=== PATIENT | male | born 1930 | race Caucasian/White ===

== ENCOUNTER → 2017-03-03 | Outpatient (CLI) | payer MEDICARE, OTHER ==
[~2017-03-03] MED LIST: AMOXICILLIN250 MG PO; ARTIFICIAL TEAR15 ML OPHTH; ASPIRIN (CHILDR81 MG PO; B COMPLETE1 EACH PO; CALCIUM 600 +1 EAC6 PO; CARDIZEM CD)(T180 MG PO; CITRACAL+D(315M1 TAB PO; CRESTOR10 MG PO; FLOMAX0.4 MG PO; FLORASTOR250 MG PO; K-TAB ER20 MEQ PO; MECLIZINE HCL25 M1 PO; MICROZIDE12.5 MG PO; PROTONIX40 M1 PO; REFRESH TEARS15 ML OPHTH; SALONPAS PATCH1 EAC1 TOP; STOOL SOFTENER100 MG PO; TUMS REGULAR ST1 TAB PO; TYLENOL EXTRA500 MG PO; VITAMIN D1000 UNI1 PO
== END | disposition disaster alternative care site (69) ==
LOC: GCAR 12:14
DX: R42 Dizziness and giddiness (principal); I65.23 Occlusion and stenosis of bilateral carotid arteries; R26.81 Unsteadiness on feet; R26.2 Difficulty in walking, not elsewhere classified

== ENCOUNTER 2017-03-22 23:23 | Emergency (ER) | payer MEDICARE, OTHER ==
--- NOTE | ~2017-03-22 | ER ---
PATIENT'S NAME: LIDIA MAYNARD [facility] AGE: 87 Y [address] ROOM: [place] [address] LOCATION: [facility] ADMIT DATE: 03/22/2017 ER/Outpatient Report DISCHARGE DATE: 03/23/2017 FAMILY PHYSICIAN: Eric Enriquez MD ATTENDING PHYSICIAN: Harika Morales HISTORY OF PRESENT ILLNESS: This is an 87-year-old male who presents today with chief complaint of bilateral leg weakness. He says that he had been feeling unwell for the last four days. He had gone in to see Dr. Enriquez for this right-sided facial pain in his jaw with diagnosis of TMJ and placed on prednisone. Had seen Dr. Enriquez earlier today as well for recheck and evaluation. The patient says he felt fine earlier this morning and then at nighttime before he went to bed that was about 3 hours prior to coming in. He felt sort of weak, but he went to bed and then woke up at about 2 hours prior to coming into the ER. I tried to get to the bathroom and had bilateral leg weakness. The patient says that he had some difficulty walking. His also thinks his voice is a little bit slurred as well. The patient denies any headache. No incontinence. No nausea or vomiting. No seizure-like activity. No chest pain. No difficulty swallowing. He says that he has some numbness on the right side of his face. He has had something like this in the past and he says it is because he was placed on codeine and once they stopped that, he did have anymore, so that is why he thinks he is allergic to codeine, although he is not completely sure. PAST MEDICAL HISTORY: Includes CAD, PCI with stents in 2007 and CABG as well in 1998, BPH, osteoarthritis, hyperlipidemia, GERD, hypertension, West Nile disease in 2005. 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 SOCIAL HISTORY: He is not a smoker or use any drugs. He uses alcohol rarely. He is and lives in [place]. MEDICATIONS: Please see med list. ALLERGIES: POSSIBLY TO CODEINE, NOTHING ELSE. REVIEW OF SYSTEMS: Reviewed by me and with the exception of those discussed in the HPI. PATIENT'S NAME: LIDIA MAYNARD [facility] AGE: 87 Y [address] ROOM: [place] [address] LOCATION: [facility] ADMIT DATE: 03/22/2017 ER/Outpatient Report DISCHARGE DATE: 03/23/2017 FAMILY PHYSICIAN: Eric Enriquez MD ATTENDING PHYSICIAN: Harika Morales PHYSICAL EXAMINATION: VITAL SIGNS: The patient's blood pressure 116/77, heart rate 97, respiratory rate 16, temperature is 98.6, oral saturating 93% on room air. GENERAL: The patient does not look toxic. He is well appearing. HEENT: Pupils are equal and reactive to light. He does have a right-sided facial paralysis that is the entire right side of his face. States he has a bit of ptosis on that right side and that right eye does not move as much of that left eye when he talks, so this is chronic and is not anything new according to him and his . He is otherwise alert and oriented x4. He is not lethargic. He knows he is oriented to person, place, time, and situation. His pupils are equal and reactive to light. He his speech is pretty normal. He answers questions appropriately. I do not think his speech is very slurred at all. HEART: Rate is regular rate and rhythm. He has strong pulses. LUNGS: His lung sounds are clear. He has no labored breathing, tachypnea, accessory muscle use. ABDOMEN: Soft, nontender, nondistended. He has no guarding or rebound. SKIN: Warm, dry, and intact. NEURO: He has no pronator drift. Strength of bilateral upper extremities are 5/5. Intact sensation in bilateral upper extremities. Strength of bilateral lower extremities are also 5/5. He also has intact sensation bilateral lower extremities. His plantar flexion and dorsiflexion of the ankles are both 5/5. He has good grasp strength bilaterally. His cranial nerves 2 through 12 are intact. He is able to do [id number] testing. So, his Euro-stroke scale at this time, I gave him 1 for this mild dysarthria with the slurring of some words, but otherwise his stroke scale is 1 and I do not think he meets criteria for tPA at this time with a stroke scale of 1 and improving symptoms. He does not have any motor weakness at this time. DIAGNOSTIC DATA: We checked some lab work and we did a CT head, so looking for other causes of this bilateral leg weakness which is his major complaint. The CT head shows diffuse atrophy, but there was no acute hemorrhage and no definite acute infarct. The UA showed leukocytes 25, nitrites negative, wbc's 0-2, rbc's negative. Epithelial cells 0-2, bacteria negative, so essentially a negative UA as well. CBC shows white count of 10.4, H and H is 14.0/41.0, platelets are 132. The manual diff shows an ANC of 9.5 on his left shift as well, but no bandemia. His procalcitonin is 0.57. His CMS shows a sodium of 138, potassium 3.4, chloride 105, CO2 of 24, anion gap 12.4, BUN is 28, creatinine is 1.2, bilirubin 0.9, alkaline phosphatase 80, AST 21, ALT 24, GFR 57, CPK 92, CK-MB is 1.4. Troponin I is 0.085. EKG shows sinus rhythm. He has some PVCs and some ST depression and biphasic T-waves in V6, but no other acute abnormalities. The patient never had chest pain. I went back to re-evaluate him. He had been given a liter of fluids. At this PATIENT'S NAME: LIDIA MAYNARD [facility] AGE: 87 Y [address] ROOM: [place] [address] LOCATION: [facility] ADMIT DATE: 03/22/2017 ER/Outpatient Report DISCHARGE DATE: 03/23/2017 FAMILY PHYSICIAN: Eric Enriquez MD ATTENDING PHYSICIAN: Harika Morales A point, we also gave him a full dose of aspirin here as well and some Zofran, and he says he feels better. We were able to get him to stand up on a bed. He is able to bear weight. He says he feels a lot better than he did when he came in. I looked at his chest x-ray as well, I do not see he had pneumonia, cannot find a source for possible infection, and he feels warm but he is afebrile. He has low mildly elevated procalcitonin. No chest pain. No EKG findings, although mildly elevated troponin I as well. I discussed this patient with Dr. Enriquez. Given that this patient looks pretty well and his symptoms have completely resolved now. We will give him a shot of Rocephin and have him follow up with Dr. Enriquez. I do not think this is indicative of acute stroke, and the patient has had new carotid Dopplers, and in that workup previously, he does take an aspirin every day as well. We will have him follow up with Dr. Enriquez in 12 hours. He understands reasons to come back to the ER sooner. IMPRESSION: Generalized weakness. MD YODIT GREENWOOD/lorenzo /[id number] d: 03/23/17 1225 t: 04/21/17 1101, OUTPATIENT REPORT
[2017-03-23 00:18] LABS: MCH 30.2 pg (27.0-34.0); MCHC 34.1 gm/dL (32.0-36.5); MCV 88.4 fl (83.0-98.0); MPV 10.4 fl (9.4-12.4); PLATELET COUNT 132 K/uL (150-450); RBC 4.64 M/uL (3.50-5.50); RDW-CV 13.6 % (11.9-14.6); WBC 10.4 K/uL (4.0-11.0)
[2017-03-23 00:35] LABS: ALBUMIN 3.3 gm/dL (3.5-5.0); ANION GAP 12.4 (10.0-19.0); CALCIUM 8.4 mg/dL (8.5-10.5); CREATININE 1.2 mg/dL (0.6-1.3); POTASSIUM 3.4 mMol/L (3.7-5.1); TOTAL BILIRUBIN 0.9 mg/dL (0.0-1.5); TOTAL PROTEIN 6.7 g/dL (6.0-8.4)
[2017-03-23 00:55] LABS: ABSOLUTE NEUTROPHIL CT (ANC) 9.5 K/uL (1.4-9.0); LYMPHOCYTE # 0.4 K/uL (0.8-4.0); LYMPHOCYTE % 4 %; MONOCYTE # 0.5 K/uL (0.0-1.0); SEGMENTED NEUTROPHIL # 9.5 K/uL (1.4-9.0); SEGMENTED NEUTROPHIL % 91 %
[2017-03-23 01:44] LABS: BILIRUBIN URINE NEGATIVE (NEGATIVE); BLOOD URINE NEGATIVE /UL (NEGATIVE); COLOR URINE YELLOW (YELLOW); GLUCOSE URINE NEGATIVE (NEGATIVE); KETONE URINE NEGATIVE (NEGATIVE); LEUKOCYTES URINE 25 /UL (NEGATIVE); NITRITE URINE NEGATIVE (NEGATIVE); PROTEIN URINE 15 mg/dL (NEGATIVE); SPEC GRAVITY URINE 1.015 (1.003-1.035); TURBIDITY URINE 1+ (CLEAR); UROBILINOGEN URINE 1 mg/dL (NORMAL)
[2017-03-23 01:52] LABS: BACTERIA URINE NEGATIVE (NEGATIVE); EPITHELIAL URINE 0-2 #/HPF (NEGATIVE); MUCUS URINE 1+ (NEGATIVE); RBC URINE NEGATIVE #/HPF (NEGATIVE); WBC URINE 0-2 #/HPF (NEGATIVE)
== END 2017-03-23 02:45 | disposition disaster alternative care site (69) ==
LOC: GACC 23:23
PROVIDERS: Emergency Medicine
DX: R53.1 Weakness (principal); I25.10 Atherosclerotic heart disease of native coronary artery without angina pectoris; M19.90 Unspecified osteoarthritis, unspecified site; E78.5 Hyperlipidemia, unspecified; K21.9 Gastro-esophageal reflux disease without esophagitis; I10 Essential (primary) hypertension; Z95.5 Presence of coronary angioplasty implant and graft; Z95.1 Presence of aortocoronary bypass graft; Z90.79 Acquired absence of other genital organ(s); Z79.899 Other long term (current) drug therapy
CPT/HCPCS: J0696; J2405; J7030

== ENCOUNTER → 2017-03-22 | Outpatient (CLI) | payer MEDICARE, OTHER | END | disposition disaster alternative care site (69) | LOC: GAMB 22:52 | DX: I63.9 Cerebral infarction, unspecified (principal); K21.9 Gastro-esophageal reflux disease without esophagitis; I10 Essential (primary) hypertension; R68.84 Jaw pain; R53.1 Weakness; R47.81 Slurred speech; Z79.82 Long term (current) use of aspirin; Z79.899 Other long term (current) drug therapy; Z88.2 Allergy status to sulfonamides | CPT/HCPCS: A0425; A0427 ==

== ENCOUNTER → 2017-04-08 | Outpatient (CLI) | payer MEDICARE, OTHER ==
[2017-04-08 10:18] LABS: ESTIMATED GFR (MDRD EQUATION) > 60
== END | disposition disaster alternative care site (69) ==
LOC: GRAD 09:31 → GLAB 10:00 → GRAD 11:00
PROVIDERS: Otolaryngology
DX: R20.0 Anesthesia of skin (principal); I65.23 Occlusion and stenosis of bilateral carotid arteries
CPT/HCPCS: Q9967

== ENCOUNTER 2017-05-16 18:13 | Inpatient (IN) | payer MEDICARE, OTHER ==
[~2017-05-16] VITALS: Ht 175.3 cm; Wt 78.9 kg
--- NOTE | ~2017-05-16 | ECHO ---
Transthoracic Echocardiography Report (TTE) Demographics Patient Name LIDIA MAYNARD Date of Study 05/19/2017 P Patient Number [id number] Visit Number [id number] Date of 1930 Room Number G3206 Accession Number [id number] Gender Male Age 87 year(s) Referring Pelon Calhoun MD Factory Expert Imani Garzon RVT Physician Cuong Arenas Physician Interpreting Ronan Houser Orchestra Conductor Physician Supervising Ordering Physician Cuong Arenas MD/MLP Nurse Stress Client Development Consultant Conclusions Contractility Score Summary Normal Left Ventricular contractility was noted. Summary Normal LV/RV size and systolic function. The estimated left ventricular ejection fraction is 55-60%. Left ventricle appears hyperdynamic. Diastolic assessment reveals Grade I diastolic dysfunction. Mild biatrial enlargement. The aortic valve was not well imaged. There is mild aortic stenosis by the Continuity Equation. The peak velocity is 3.08 m/s, the mean gradient is 17 mmHg, and the valve area based on the continuity equation is 1.82 cm2, stroke volume index is 37 ml/m2. Procedure Type of Study TTE procedure:2D Echocardiogram. Procedure Date Date: 05/19/2017 Start: 01:28 PM Study Location: Echo Lab Technical Quality: Limited visualization due to poor acoustical window. Indications:Elevated Troponin. Appropriate Use Criteria: 9 Patient Status: Routine HR: 75 bpm M-Mode/2D Measurements LV Diastolic Dimension: 3.26 cm LV Systolic Dimension: 2.38 cm Cardiac Output: 5.32 l/min AO Root Dimension: 2.4 cm LA Dimension: 3.63 cm LA volume: 63 ml RV Mid: 2.75 cm LVOT: 2 cm RV Length: 5.36 cm LVOT VTI: 22.6 cm TAPSE: 1.46 cm LV Stroke volume: 70.96 ml Doppler Measurements AV Peak Velocity: 3.08 m/s MV Peak E-Wave: 0.76 m/s AV Peak Gradient: 37.95 mmHg MV Peak A-Wave: 1.2 m/s AV Mean Gradient: 17 mmHg MV E/A Ratio: 0.64 LVOT Peak Velocity: 1.52 m/s MV P1/2t: 98 msec TR Gradient:8.29 mmHg PV Peak Velocity: 1.28 m/s Estimated RAP:10 mmHg PV Peak Gradient: 6.55 mmHg Estimated RVSP: 18 mmHg Estimated PASP: 18.29 mmHg E' Septal Velocity: 0.04 m/s A' Septal Velocity: 0.08 m/s E' Lateral Velocity: 0.1 m/s A' Lateral Velocity: 0.12 m/s Findings Left Ventricle Left ventricle appears hyperdynamic. Diastolic assessment reveals Grade I diastolic dysfunction. Right Ventricle Normal right ventricular size and function. Left Atrium The left atrium is mildly dilated by LA volume index measurement. Right Atrium IVC measures 1.05 cm with inspiratory collapse. The right atrium is mildly dilated. Mitral Valve Mild to moderate calcification of the mitral valve. Mild to moderate mitral annular calcification. Trivial mitral regurgitation by color Doppler. Aortic Valve The aortic valve was not well imaged. There is mild aortic stenosis by the Continuity Equation. The peak velocity is 3.08 m/s, the mean gradient is 17 mmHg, and the valve area based on the continuity equation is 1.82 cm2, stroke volume index is 37 ml/m2. Tricuspid Valve Trivial tricuspid regurgitation by color Doppler. Pulmonic Valve Normal pulmonic valve structure and function. Pericardial Effusion Trivial pericardial effusion. Miscellaneous Visualized portions of the aortic root and ascending aorta appear normal in size. Pleural Effusion No evidence of pleural effusion. Contractility Score LV regional wall motion:(0-Non visualized 1-Normal 2-Hypokinesis 3-Akinesis 4-Dyskinesis 5-Aneurysm) Signature dtt: JAISON ALMAGUER dtd: 05/19/17 8818 Physician Self Edit
--- NOTE | ~2017-05-16 | CON ---
PATIENT'S NAME: LIDIA MAYNARD [facility] AGE: 87 Y [address] ROOM: [place] [address] [place] [facility] [place]: 05/16/2017 Consultation DISCHARGE DATE: FAMILY PHYSICIAN: OBED QUINTERO MD ATTENDING PHYSICIAN: Julio Bird DATE OF CONSULTATION: 05/19/2017 REFERRING PHYSICIAN: SWETHA RIVERA MD REASON FOR CARDIOLOGY CONSULT: Preoperative cardiac evaluation and elevated troponin. HISTORY OF PRESENT ILLNESS: This is an 87-year-old male, admitted with a submandibular abscess. He was having difficulty swallowing over the last few days as well as pain in his mouth and jaw and noted swelling. He also noted some facial paralysis prior to admission. He denies any chest pain, shortness of breath, or dyspnea on exertion. His heart history includes a history of coronary artery disease and coronary artery bypass grafting x3 vessels in 1998 as well as coronary stent in 2007. He has had subsequent nuclear stress testing which have all been negative up until 2012 with the last test. 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 During all the testing, he was followed by Dr. Alli Osorio and has felt fine for the last few years and has not followed with him since 2012. At the time of this consult, he is resting comfortably in his chair without complaints of pain. His main complaint is of disliking the thickened liquids, but overall appears comfortable, in no acute distress. PAST MEDICAL HISTORY: 1. Coronary artery disease. 2. Hyperlipidemia. 3. Hypertension. 4. History of acoustic neuroma on the right side with resection and nerve damage causing chronic right-sided facial droop. 5. Generalized anxiety. 6. History of TIAs. PAST SURGICAL HISTORY: 1. Coronary artery bypass grafting x3 vessels in 1998. 2. Basal cell carcinoma removed from his neck. 3. Hernia repair. 4. Acoustic neuroma removal with nerve damage. 5. Coronary artery stenting, most recently in 2007. 6. Left hip replacement. 7. Right hip fracture repair. PATIENT'S NAME: LIDIA MAYNARD [facility] AGE: 87 Y [address] ROOM: [place] [address] [place] [facility] [place]: 05/16/2017 Consultation DISCHARGE DATE: FAMILY PHYSICIAN: OBED QUINTERO MD ATTENDING PHYSICIAN: Julio Bird FAMILY HISTORY: The patient's mother due to breast cancer with metastasis to her bone. His father due to "heart troubles." He has 2 sisters, both with breast cancer, but both are alive. SOCIAL HISTORY: The patient denies ever using tobacco. He also denies alcohol or illicit drug use. CURRENT MEDICATIONS: 1. Unasyn 3 g IV every 6 hours. 2. Aspirin 81 mg p.o. daily. 3. Cardizem 180 mg p.o. daily. 4. Colace 200 mg p.o. twice daily. 5. Flomax 0.4 mg p.o. daily. 6. Hydrochlorothiazide 12.5 mg p.o. daily. 7. Os-Pedro plus D 500 mg p.o. daily in the evening. 8. Protonix 40 mg p.o. daily. 9. Vitamin D 1000 units p.o. daily. 10. Ziagen 1 tab p.o. daily. MEDICATION ALLERGIES: No known medication allergies. REVIEW OF SYSTEMS: Pertinent positive review of systems listed in the HPI. All other review of systems evaluated and negative. DIAGNOSTICS: Cardiac enzyme evaluation shows a CPK of 47, then 57, then 49; CK-MB of 0.6, then 1.0, then 1.4; and troponin I of 0.089, then 0.119 ,then 0.121. Preliminary echocardiogram shows a preserved ejection fraction with mild-to- moderate increased aortic velocity. Full report to be reviewed by Dr. Corrina Ferraro. PHYSICAL EXAMINATION: VITAL SIGNS: Temperature 98.2, pulse 72, respirations 20, blood pressure 124/73, and O2 saturation 96% on room air. The patient weighs 78.9 kg. SKIN: [place], warm, and dry. EYES: Sclerae clear. No xanthelasmas. ENT: Oral mucosa is pink and moist. No jugular venous distention. No carotid bruits. CHEST: Respirations are even and unlabored. LUNGS: Clear to auscultation. PATIENT'S NAME: LIDIA MAYNARD [facility] AGE: 87 Y [address] ROOM: [place] [address] [place] [facility] [place]: 05/16/2017 Consultation DISCHARGE DATE: FAMILY PHYSICIAN: OBED QUINTERO MD ATTENDING PHYSICIAN: Julio Bird HEART: Regular rate and rhythm. Normal S1, S2. Does have a 2/6 systolic murmur. ABDOMEN: soft and nontender. MUSCULOSKELETAL: Equal muscle strength, upper and lower extremities bilaterally against resistance. EXTREMITIES: Peripheral pulses palpable. No clubbing, cyanosis, or edema. PSYCHIATRIC: Alert and oriented. Mood and affect are appropriate. IMPRESSION AND PLAN: Per Dr. Corrina Ferraro: 1. Preoperative cardiac evaluation. 2. Coronary artery disease with a history of coronary artery bypass grafting and coronary stenting with no complaints of angina at this time. Cardiac enzymes are mildly elevated, but most likely could be due to demand mismatch from current infective state. 3. Submandibular abscess with plans for surgery with ENT tomorrow. 4. Hypertension. 5. Hyperlipidemia. Once again, this is an 87-year-old male, admitted with a submandibular abscess. He has no complaints of chest pain, shortness of breath, or palpitations. He had a troponin checked on his ER admission and it was continued to be trended during his hospitalization, but unsure of why. His enzyme trend is fairly flat and he has no ischemic changes on his EKG as well as normal CPK and CK-MB. So overall, he has no complaints of acute coronary syndrome. He is at moderate risk of perioperative cardiac events due to his history of CABG and stenting, but is in no need of further cardiac workup at this time and should proceed with his urgent surgery. We will check a fasting lipid panel for further risk stratification and start him on a statin due to his coronary history. We will continue his medication regimen with calcium channel t[place] and continue to monitor, evaluate, and treat as appropriate. Thank you for this consult. Thank you for allowing [facility] to interact in the care of patient. CHRISTOPHE HINES APRN FOR MD AMY FULLER/lorenzo /[id number] d: 05/19/172052 t: 05/26/17 1729, CONSULTATION REPORT
--- NOTE | ~2017-05-16 | HP ---
PATIENT'S NAME: LIDIA MAYNARD [facility] AGE: 87 Y [address] ROOM: [place] [address] [place] [facility] [place]: 05/16/2017 History & Physical DISCHARGE DATE: FAMILY PHYSICIAN: OBED QUINTERO MD ATTENDING PHYSICIAN: Aline Nunes DATE OF SERVICE: CHIEF COMPLAINT: Submandibular abscess. HISTORY OF PRESENTING ILLNESS: This 87-year-old white male with previous history of coronary artery disease, TIA, and chronic dysarthria, was brought to the emergency department this evening after a fall, which occurred at home. Briefly, he had been seen and evaluated for a toothache on an outpatient basis. It is not clear if he received any antibiotics for that. He was seen and evaluated by Dr. Mccracken, ENT, a few days ago. Over the course of the last 24 hours, he has developed increasing pain and swelling in the neck and jaw. He has also become progressively more weak and anorexic. He fell today in the garage without injury. On his arrival to the floor, he complains of feeling tired and hungry. He admits to feeling weak, but cannot specify. He denies headaches, denies dizziness or nausea. His appetite has been poor, but he does report feeling hungry now. He denies any chest pain. No significant shortness of breath and no abdominal pain. He has not had any problems with swallowing to this point. He denies numbness or tingling in his extremities or any associated physical or constitutional complaints. PAST MEDICAL HISTORY: Allergies: Codeine. ILLNESSES: 1. Coronary artery disease. 2. Essential hypertension. 3. Acoustic neuroma, on the right, status post resection with chronic right- sided facial droop. 4. Hyperlipidemia. 5. Chronic constipation. 6. Anxiety, generalized. 7. History of TIAs. 8. Dysarthria, chronic. PATIENT'S NAME: LIDIA MAYNARD [facility] AGE: 87 Y [address] ROOM: [place] [address] [place] [facility] [place]: 05/16/2017 History & Physical DISCHARGE DATE: FAMILY PHYSICIAN: OBED QUINTERO MD ATTENDING PHYSICIAN: Aline Nunes CURRENT MEDICATIONS: 1. Acetaminophen 500 mg p.o. q.i.d. p.r.n. 2. Aspirin 81 mg p.o. daily. 3. Tums p.r.n. 4. Calcium 600 mg p.o. q.h.s. 5. Refresh ophthalmic drops 1 drop each eye daily. 6. Vitamin D 1000 units p.o. daily. 7. Diltiazem 180 mg p.o. daily. 8. Colace 100 mg 2 caps p.o. b.i.d. 9. HCTZ 12.5 mg p.o. daily. 10. Meclizine 25 mg p.o. t.i.d. p.r.n. 11. Salonpas 1 patch applied topically at h.s. 12. Protonix 40 mg p.o. daily. 13. Flomax 0.4 mg p.o. daily. 14. Vitamin B complex daily. FAMILY HISTORY: Significant for cancer in his mother. Otherwise negative. SOCIAL HISTORY: He is and lives here in [place]. He is a nonsmoker and rarely drinks alcohol. REVIEW OF SYSTEMS: As per HPI. All other organ systems reviewed and are negative. OBJECTIVE: VITAL SIGNS: Temperature 99.7, pulse 88, respirations 18, blood pressure 139/85, O2 saturation 95% on room air. GENERAL: He is anxious, cooperative, lying in bed, in no acute distress. SKIN: Supple, pink, warm, and dry. There were no obvious rashes. HEENT: Otherwise, normocephalic. Sclerae nonicteric. Pupils are equal, round, slow to react to light. Extraocular movements appear intact. Nasal turbinates are normal in appearance. Oropharynx is clear. Mucous membranes are pink and slightly dry. There is a putrid melissa. NECK: Supple with some anterior cervical adenopathy on the right. He has tenderness to manipulation over the angle of the mandible on the right and there is submandibular prominence. It is tender to the touch. There is a little bit of overlying hyperemia. No dorcas erythema. Neck reveals no other masses. CHEST: Chest wall is symmetrical. HEART: Regular with occasional extrasystole. LUNGS: Diminished at the bases. No crackles or wheezes are heard. ABDOMEN: Soft, nontender. Bowel sounds are present. No masses or hepatosplenomegaly. PATIENT'S NAME: LIDIA MAYNARD [facility] AGE: 87 Y [address] ROOM: [place] [address] [place] [facility] [place]: 05/16/2017 History & Physical DISCHARGE DATE: FAMILY PHYSICIAN: OBED QUINTERO MD ATTENDING PHYSICIAN: Aline Nunes : Not done. RECTAL: Not done. EXTREMITIES: Display no clubbing, cyanosis, or edema. NEUROLOGICAL: Anxious. There is right-sided facial droop, unchanged from previous. No other focal deficits. LABORATORY AND X-RAY DATA: CT scan of the neck reveals a submandibular abscess. CT scan of the brain is negative for any acute intracranial abnormality. Chest x-ray shows no acute findings. CBC showed a white blood cell count 8.8, hemoglobin is 13.6, hematocrit 38.7, and platelets 219. Chemistries reveal BUN and creatinine 17 and 1.0 respectively. Sodium and potassium are 134 and 3.4. Chloride and CO2 are 100 and 25. AST and ALT 19 and 19 respectively. Bilirubin is 0.8. Glucose 122. PT and PTT 10.0 and 30 respectively with an INR of 0.95. Urinalysis is unremarkable. Cardiac enzymes revealed minimally abnormal troponin I of 0.066. ASSESSMENT AND PLAN: 1. Submandibular abscess. We will admit to inpatient care. We will get blood cultures as this has not been done yet. We will initiate antibiotic therapy with IV Unasyn and request consultation by Dr. Mccracken. There is no evidence for airway compromise. We will manage pain symptomatically. He is not septic appearing. 2. Weakness, generalized with ground-level fall. No injuries. We will hydrate him gently. We will manage the infection, as described above and await ENT evaluation. He might benefit from some physical therapy and occupational therapy depending on his progress. 3. Elevated cardiac enzymes. He is otherwise clinically asymptomatic. We will go ahead and trend cardiac enzymes overnight, but hold off on further evaluation unless he should trend up. 4. Essential hypertension, suboptimal control, but adequate. We will follow the trend and make adjustments if necessary. 5. Coronary artery disease, clinically stable and otherwise asymptomatic. We will plan to continue with aspirin therapy. Consider statin therapy at some point. 6. Hypokalemia. We will replace. 7. Deep venous thrombosis prophylaxis. We will hold off on heparin or Lovenox for tonight in light of the possibility of surgical intervention tomorrow. We will readdress again tomorrow. ALINE NUNES MD PATIENT'S NAME: LIDIA MAYNARD [facility] AGE: 87 Y [address] ROOM: [place] [address] [place] [facility] [place]: 05/16/2017 History & Physical DISCHARGE DATE: FAMILY PHYSICIAN: OBED QUINTERO MD ATTENDING PHYSICIAN: Aline Nunes/lorenzo /[id number] D: [id number] T: [id number] HISTORY & PHYSICAL
--- NOTE | ~2017-05-16 | DS ---
PATIENT'S NAME: LIDIA MAYNARD [facility] AGE: 87 Y [address] ROOM: [place] [address] [place] [facility] [place]: 05/16/2017 Discharge Summary DISCHARGE DATE: 05/22/2017 FAMILY PHYSICIAN: Eric Enriquez MD ATTENDING PHYSICIAN: Julio Bird ADMITTING DIAGNOSIS: Submental abscess. DISCHARGE DIAGNOSIS: Submental abscess, status post I and D. SECONDARY DIAGNOSES: 1. History of coronary artery disease. 2. Essential hypertension. 3. Dysphagia. 4. Meniere disease. 5. Physical deconditioning. PROCEDURES: Submental I and D on May 20, 2017, by Dr. Mccracken. CONSULTATION: ENT and Cardiology. HISTORY OF PRESENT ILLNESS: The patient is an 87-year-old male with previous history of coronary artery disease; chronic dysarthria; history of acoustic neuroma, status post resection; Meniere disease; essential hypertension, who presents here with submental abscess. HOSPITAL COURSE: The patient was admitted and was started on Unasyn. The patient had a bedside I and D initially by Dr. Mccracken. Wound culture grew pansensitive strep. The patient continued to be on IV antibiotics. The patient was also noted to have elevated troponin. Cardiology was consulted. Echocardiogram was done, did not show any wall motion abnormality. Cardiology evaluated for cardiac clearance for surgery. The patient was cleared for surgery. Etiology of troponin most likely secondary to demand. During his stay, the patient denied any chest pain and also EKG did not show any signs of ischemic ST changes. The patient had submental abscess drainage on April 20, 2017. The patient tolerated the procedure well. The patient's antibiotic was changed to amoxicillin. The patient was discharged home in stable condition with home health with PT, OT, and speech therapy. Of note, the patient has a history of dysarthria secondary to acoustic neuroma resection. The patient was seen by Speech Therapy and was deemed to be on nectar thick liquid diet. The patient during stay was on nectar thick liquid diet and tolerated diet well. CONDITION: Stable. PATIENT'S NAME: LIDIA MAYNARD [facility] AGE: 87 Y [address] ROOM: [place] [address] [place] [facility] [place]: 05/16/2017 Discharge Summary DISCHARGE DATE: 05/22/2017 FAMILY PHYSICIAN: Eric Enriquez MD ATTENDING PHYSICIAN: Julio Bird DISPOSITION: Home with home health. DISCHARGE MEDICATIONS: Please see MAR. PENDING STUDIES: No pending studies. FOLLOWUP: Follow up with Dr. Mccracken on Wednesday, May 24, 2017, and primary care physician. The patient also to follow up with primary care physician with repeat CMS on May 25, 2017. PHYSICAL EXAMINATION: VITAL SIGNS: Temperature 98.5, blood pressure 121/61, pulse of 84, respiratory rate 16. HEAD: Normocephalic, atraumatic. FACE: The patient has clean and dry intact dressing over submental surgical incision. LUNGS: Clear to auscultation. HEART: Grade 2 systolic murmur heard. Regular rate and rhythm. ABDOMEN: Soft, nontender, and nondistended. Bowel sounds present. SKIN: Warm to touch. MASSEUR/MASSEUSE: Alert and oriented x3. Motor and sensory grossly intact. Greater than 30 minutes was spent on discharge planning. PRASHANTWE MD PIERO RUBIO/modl /[id number] d: 05/22/17 2347 t: 05/24/17 0920, DISCHARGE SUMMARY
--- NOTE | ~2017-05-16 | ER ---
PATIENT'S NAME: LIDIA MAYNARD [facility] AGE: 87 Y [address] ROOM: [address] [address] LOCATION: [facility] [place] ADMIT DATE: 05/16/2017 ER/Outpatient Report DISCHARGE DATE: FAMILY PHYSICIAN: OBED ENRIQUEZ MD ATTENDING PHYSICIAN: Julio Bird Time of Arrival: 1813 hours. Time of Evaluation: 1820 hours. CHIEF COMPLAINT: Weakness. HISTORY OF PRESENT ILLNESS: This is an 87-year-old male, who presents to the ER with his , who states he has been getting progressively weak over the past several weeks and worse the last 5 days. They state that he has been dealing with some right-sided facial pain as well and he has been seeing Dr. Enriquez and their dentist as well. They state that he was found to have a right tooth abscess and he did have that removed in March and ever since then he has been having troubles with pain in the right side of his face. He states that he has been noticed some difficulty or pain when he swallows on the left side of his throat and he did see Dr. Rivera for that one week ago. They state that he had a scope done and everything looked okay, so he thought everything should be fine, but he still has not felt better. His states that he just told her about some swelling underneath of his mandible. He is not quite for sure when that started. She also states that he became weak tonight and ended up falling down in their garage floor tonight. He states that he did not hit his head. He denies any neck or back pain. He does not believe he has been running any fevers at home. He denies any chest pain or shortness of breath. No nausea or vomiting. The patient states he has a history of Meniere disease in the past and he has fallen down in the past because of that. ALLERGIES: CODEINE. MEDICATIONS: Please see medication list nurse's notes. 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 SOCIAL HISTORY: Denies smoking, drug, or alcohol use. PATIENT'S NAME: LIDIA MAYNARD [facility] AGE: 87 Y [address] ROOM: [address] [address] LOCATION: [facility] [place] ADMIT DATE: 05/16/2017 ER/Outpatient Report DISCHARGE DATE: FAMILY PHYSICIAN: OBED ENRIQUEZ MD ATTENDING PHYSICIAN: Julio Bird REVIEW OF SYSTEMS: All systems reviewed and were negative with the exception of those discussed in the HPI. PHYSICAL EXAMINATION: VITAL SIGNS: Height 5 feet and 9 inches stated, weight 80.5 kg taken, blood pressure is 139/85, pulse 88, respirations 18, temperature 99.7 degrees tympanically, and saturations 95% on room air. Kevin Coma Score is 15. GENERAL: Alert, calm, well-developed, 87-year-old, in no acute distress. HEENT: Head: Normocephalic. Ears: TMs display good light reflexes bilaterally. Nose: Turbinates pink with no drainage. Throat: No exudates or erythema. He does have like a small blister appearance onto the floor of his mouth on the left side. He does display moist mucous membranes. Eyes: Pupils are equal and reactive to light. NECK: He does have an apricot-sized area of induration underneath of his mandible. There is a slight erythema to the skin around that as well. It is tender to palpate. LUNGS: Clear to auscultation bilaterally. HEART: Regular rate and rhythm. He does have a murmur noted. ABDOMEN: Soft. It is nontender. He has good bowel sounds throughout. EXTREMITIES: No clubbing or cyanosis. He does have full range of motion of all limbs. SKIN: Warm, dry, and intact. LABORATORY DATA AND X-RAYS: CBC: White count is 8.8, hemoglobin is 13.6, platelets 219, and ANC is 7.1. INR is 0.95. Sodium is 134, potassium is 3.4, BUN is 17, creatinine is 1.0, magnesium is 2.1, CPK is 46, CK-MB is less than 0.5, and troponin I is 0.066. Urinalysis was negative for any infection, no blood in his urine. EKG shows atrial rhythm. Chest x-ray was negative for any infiltrate. We did do a CT scan of the head, which was negative. We did a CT of the neck with contrast, does show that he has swelling to the floor of the mouth just left of midline, measuring 2.1 cm. He has a little abscess there behind the left mandible. IMPRESSION: 1. Generalized weakness. 2. Elevated troponin. 3. 1 x 2 cm abscess to the floor of the mouth behind the left mandible. ASSESSMENT AND PLAN: I discussed the patient's care with Dr. Bergman. Dr. Bergman also evaluated the patient. We did place a saline lock here in the ER for him as well. I did speak with his primary care physician, Dr. Enriquez, and he states he would like me to get this to the Hospitalist Service. I therefore spoke with Dr. Bird and he will be admitting patient for further care. I did speak with PATIENT'S NAME: LIDIA MAYNARD [facility] AGE: 87 Y [address] ROOM: [place] [address] LOCATION: [facility] [place] ADMIT DATE: 05/16/2017 ER/Outpatient Report DISCHARGE DATE: FAMILY PHYSICIAN: OBED ENRIQUEZ MD ATTENDING PHYSICIAN: Julio Bird Dr. in regard to the abscess as well and he will be consulting along on this case. The patient and the patient's understand and agree with care. NICK RIVERA PA-C FOR MD REZA MONSON/lorenzo /[id number] d: t: 05/26/17 1349, OUTPATIENT REPORT
--- NOTE | ~2017-05-16 | OR ---
PATIENT'S NAME: LIDIA MAYNARD [facility] AGE: 87 Y [address] ROOM: [place] [address] LOCATION: [facility] [place] ADMIT DATE: 05/16/2017 OR/Procedure Report DISCHARGE DATE: FAMILY PHYSICIAN: OBED QUINTERO MD ATTENDING PHYSICIAN: Julio Bird SURGEON: Daren Mccracken MD TRAINER: Jeff Meza MD - Resident -5 . DATE OF PROCEDURE: 05/20/2017 DICTATED BY: Jeff Meza MD PREOPERATIVE DIAGNOSIS: Submental abscess. POSTOPERATIVE DIAGNOSIS: Submental abscess PROCEDURE PERFORMED: Incision and drainage of submental abscess. ANESTHESIA: General anesthesia with LMA. BLOOD LOSS: 5 mL. SPECIMENS: None. FINDINGS: Multiloculated fluid collection in the submental abscess favoring the left side. 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 He presented with odynophagia and swelling in the submental space which worsened despite IV antibiotics and needle aspiration of the floor of the mouth. Repeat CT scan showed fluid collections, and he is here today for incision and drainage of the fluid collection. DESCRIPTION OF PROCEDURE: The patient was seen in the preoperative holding area. Informed written consent was obtained from the patient for the stated procedure. After full knowledge of the risks, benefits, and alternatives, the patient wished to proceed. The patient was taken to the operating room and placed on the operating room table. General anesthesia was induced without any difficulty. A time-out was performed, identifying the patient as well as the procedure to be performed. Bilateral sequential compression stockings were placed. The patient was already on antibiotics on the floor, so no preoperative antibiotics were additionally indicated. We marked out a 2 cm incision in the submental space and infiltrated this with 1% lidocaine with 1:100,000 parts of epinephrine. The patient was then prepped and draped in the normal sterile fashion. PATIENT'S NAME: LIDIA MAYNARD [facility] AGE: 87 Y [address] ROOM: [place] [address] LOCATION: [facility] [place] ADMIT DATE: 05/16/2017 OR/Procedure Report DISCHARGE DATE: FAMILY PHYSICIAN: OBED QUINTERO MD ATTENDING PHYSICIAN: Julio Bird We began by making an incision through our premarked incision with a 15 blade. This continued through the subcutaneous tissue. We then used blunt dissection with hemostats and finger dissection into the floor of the mouth through the mylohyoid muscle. There were several fluid collections that were broken up, and then the cavity was copiously irrigated. The cavity was taken all the way back to the angle of the mandible on the medial surface of the mandible on both sides. We then placed a [place] drain into the left floor of the mouth and secured this to the skin with 2-0 silk sutures. We again copiously irrigated the wound with sterile saline. This marked the conclusion of the procedure. All sponge and needle counts were correct x2. The patient was passed back to Anesthesia where he was extubated without any difficulty and transported to the PACU in stable condition. I was present for the entire case and performed the case with Ranjan Meza assisting. I agree with this note. MD STEFANIE FRAGA/lorenzo /[id number] d: 05/20/17 1334 t: 06/04/17 1248, OPERATIVE SUMMARY
--- NOTE | ~2017-05-16 | CON ---
PATIENT'S NAME: LIDIA MAYNARD [facility] AGE: 87 Y [address] ROOM: [address] [address] LOCATION: [facility] [place] ADMIT DATE: 05/16/2017 Consultation DISCHARGE DATE: FAMILY PHYSICIAN: OBED ENRIQUEZ MD ATTENDING PHYSICIAN: Julio Bird REFERRING PHYSICIAN: SWETHA RIVERA MD REFERRING PHYSICIAN: Obed Enriquez M.D. CHIEF COMPLAINT: Left floor of mouth abscess. HISTORY OF PRESENT ILLNESS: The patient is a pleasant 87-year-old male, known to this examiner as an outpatient. He has a history of a right-sided acoustic neuroma and is followed for a variety of complaints. He was seen roughly 1 week ago in the outpatient clinic, at which time he complained of a sore throat and a flexible fiberoptic laryngoscopy was performed as well as an examination and no source of the complaint could be identified at that time. The patient states that since that visit, he has progressively worsened with respect to primarily weakness as well as increasing soreness in his throat, especially on the left side as well as progressive swelling in the neck. Prior to arriving in the emergency department yesterday, he had suffered a fall at home without injury. He had decreased oral intake. He was identified by CT scan in the ER to have a small left floor of mouth abscess, and was admitted to Dr. Enriquez for assessment of his weakness as well as evaluation of elevated troponin and his various other primary medical complaints. At this time, he feels much better since the time of his admission last night having received fluids and antibiotics. He states that he has no acute complaints that have changed today, but does note that his throat continues to feel sore as well as the left side of his neck continues to be swollen. PAST MEDICAL HISTORY: Coronary artery disease, essential hypertension, history of acoustic neuroma on the right, hyperlipidemia, chronic constipation, anxiety, history of TIAs, and chronic dysarthria. MEDICATIONS: Home medications were personally reviewed and available in the chart. FAMILY HISTORY: Negative for chronic ear, nose, and throat conditions. SOCIAL HISTORY: He is , lives in [place]. He rarely drinks alcohol. He is not a PATIENT'S NAME: LIDIA MAYNARD [facility] AGE: 87 Y [address] ROOM: [facility] [place] [address] LOCATION: [facility] [place] ADMIT DATE: 05/16/2017 Consultation DISCHARGE DATE: FAMILY PHYSICIAN: OBED ENRIQUEZ MD ATTENDING PHYSICIAN: Julio Bird smoker. REVIEW OF SYSTEMS: A 10-point review of systems was performed and is negative except as per the HPI. PHYSICAL EXAMINATION: VITAL SIGNS: Temperature 99.1, respirations 16, heart rate 83, and blood pressure 128/76. GENERAL: He is well appearing, in no acute distress, lying supine in his bed. HEENT: His voice is more dysarthric than usual. He does not appear weak. He has no stertor or stridor. Ears: Auditory canals are clear. TMs unremarkable. Nose: Good nasal air flow. No mucosal lesions or drainage. Oral cavity: Mucous membranes are moist. Tongue is midline and mobile. The floor of mouth shows soft edema, left greater than right, without any obvious tension. No evidence of Mk's angina. The oropharynx is patent. The soft palate and hard palate are unremarkable. NECK: There is no palpable distinct lymphadenopathy; however, the left submandibular and sublingual space is indurated and swollen, extending over to the right as well. There is no other skin changes or purulence coming from any puncta in the neck. RADIOLOGY: CT scan of the neck was personally reviewed and reveals a 1.8 x 1.5 x 1.0 cm left floor of mouth abscess near the genioglossus muscle with surrounding induration and fat stranding. PROCEDURE: I discussed with the patient options for care including continued conservative management versus needle drainage, and the patient consented for a needle drainage attempt. The floor of mouth was anesthetized with hurricane spray followed by injection of 1% lidocaine with epinephrine. After allowing these to take effect, an 18-gauge needle was passed into the floor of mouth transorally, and a purulence pocket was identified and aspirated, approximately 3 mL of purulence was removed. The floor of mouth was then massaged, no further purulence was removed. The patient tolerated this well without any adverse airway events or swallowing difficulties. ASSESSMENT: Left floor of mouth abscess, status post needle aspiration. PLAN: He will continue on his antibiotics at this time. I will have Speech evaluate him after allowing the anesthetics to wear off for a bedside swallow eval and this will dictate his level of diet today. I will continue to follow him PATIENT'S NAME: LIDIA MAYNARD [facility] AGE: 87 Y [address] ROOM: [address] [address] LOCATION: [facility] [place] ADMIT DATE: 05/16/2017 Consultation DISCHARGE DATE: FAMILY PHYSICIAN: OBED ENRIQUEZ MD ATTENDING PHYSICIAN: Julio Bird while inpatient. The remainder of his medical problems will be managed by his primary care. All of his questions were answered. MD STEFANIE FRAGA/lorenzo /[id number] CC: MD Julio Lopez MD d: 05/17/17 0937 t: 06/04/17 1243, CONSULTATION REPORT
[2017-05-16 19:13] LABS: HEMATOCRIT 38.7 % (33.0-50.0); HEMOGLOBIN 13.6 g/dL (11.0-16.0); IMMATURE GRANULOCYTE # 0.1 K/uL (0.0-0.3); IMMATURE GRANULOCYTE % 0.6 %; LYMPHOCYTE # 0.7 K/uL (0.8-4.0); MCH 30.8 pg (27.0-34.0); MCHC 35.1 gm/dL (32.0-36.5); MCV 87.8 fl (83.0-98.0); MONOCYTE % 10.9 %; NEUTROPHIL # (ANC) 7.1 K/uL (1.4-9.0); NEUTROPHIL % 80.5 %; NRBC % 0 /100WBC (0-0.00); RBC 4.41 M/uL (3.50-5.50); RDW-CV 13.2 % (11.9-14.6); WBC 8.8 K/uL (4.0-11.0)
[2017-05-16 19:14] LABS: PLATELET COUNT 219 K/uL (150-450)
[2017-05-16 19:21] LABS: INR - (THERAPEUTIC) 0.95 (0.92-1.07); PTT 30 SECONDS (25-32)
[2017-05-16 19:32] LABS: ALBUMIN 3.1 gm/dL (3.5-5.0); ALK PHOS 103 IU/L (33-138); ALT 19 IU/L (12-78); ANION GAP 12.4 (10.0-19.0); AST 19 IU/L (10-40); BLOOD UREA NITROGEN 17 mg/dL (6-24); CALCIUM 8.3 mg/dL (8.5-10.5); CHLORIDE 100 mMol/L (96-110); CO2 25 mMol/L (22-32); CPK 46 IU/L (35-332); ESTIMATED GFR (MDRD EQUATION) > 60; MAGNESIUM 2.1 mg/dL (1.8-2.6); POTASSIUM 3.4 mMol/L (3.7-5.1); SODIUM 134 mMol/L (135-145); TOTAL BILIRUBIN 0.8 mg/dL (0.0-1.5); TOTAL PROTEIN 6.9 g/dL (6.0-8.4)
[2017-05-16 20:31] LABS: BILIRUBIN URINE NEGATIVE (NEGATIVE); BLOOD URINE NEGATIVE /UL (NEGATIVE); COLOR URINE STRAW (YELLOW); GLUCOSE URINE NEGATIVE (NEGATIVE); KETONE URINE NEGATIVE (NEGATIVE); LEUKOCYTES URINE NEGATIVE /UL (NEGATIVE); NITRITE URINE NEGATIVE (NEGATIVE); PROTEIN URINE NEGATIVE (NEGATIVE); TURBIDITY URINE CLEAR (CLEAR); UROBILINOGEN URINE NORMAL (NORMAL)
[2017-05-16] MEDS ORDERED: CARDIZEM CD)(T180 MG PO (22:55)
[2017-05-16] MEDS ORDERED: MECLIZINE HCL25 M1 PO (22:56)
[2017-05-16] MEDS ORDERED: FLOMAX0.4 MG PO (22:57)
[2017-05-16] MEDS ORDERED: PROTONIX40 M1 PO (22:57)
[2017-05-16] MEDS ORDERED: MICROZIDE12.5 MG PO (22:58)
[2017-05-16] MEDS ORDERED: CALCIUM 600 +1 EAC6 PO (22:59)
[2017-05-16] MEDS ORDERED: VITAMIN D1000 UNI1 PO (23:00)
[2017-05-16] MEDS ORDERED: B COMPLETE1 EACH PO (23:00)
[2017-05-16] MEDS ORDERED: ASPIRIN (CHILDR81 MG PO (23:01)
[2017-05-16] MEDS ORDERED: STOOL SOFTENER100 MG PO (23:02)
[2017-05-16] MEDS ORDERED: REFRESH TEARS15 ML OPHTH (23:03)
[2017-05-16] MEDS ORDERED: SALONPAS PATCH1 EAC1 TOP (23:05)
[2017-05-16] MEDS ORDERED: TUMS REGULAR ST1 TAB PO (23:06)
[2017-05-16] MEDS ORDERED: TYLENOL EXTRA500 MG PO (23:06)
[2017-05-17 02:11] LABS: BASOPHIL % 0.1 %; EOSINOPHIL % 0.1 %; HEMATOCRIT 39.4 % (33.0-50.0); HEMOGLOBIN 13.8 g/dL (11.0-16.0); IMMATURE GRANULOCYTE % 0.4 %; LYMPHOCYTE # 0.9 K/uL (0.8-4.0); LYMPHOCYTE % 9.4 %; MCH 31.2 pg (27.0-34.0); MCV 89.1 fl (83.0-98.0); MONOCYTE % 10.6 %; MPV 10.2 fl (9.4-12.4); NEUTROPHIL # (ANC) 7.5 K/uL (1.4-9.0); NEUTROPHIL % 79.4 %; NRBC % 0 /100WBC (0-0.00); PLATELET COUNT 219 K/uL (150-450); RBC 4.42 M/uL (3.50-5.50); RDW-CV 13.2 % (11.9-14.6); WBC 9.4 K/uL (4.0-11.0)
[2017-05-17 02:32] LABS: ALBUMIN 2.9 gm/dL (3.5-5.0); ANION GAP 12.5 (10.0-19.0); BLOOD UREA NITROGEN 17 mg/dL (6-24); CALCIUM 8.5 mg/dL (8.5-10.5); CHLORIDE 102 mMol/L (96-110); CO2 25 mMol/L (22-32); ESTIMATED GFR (MDRD EQUATION) > 60; PHOSPHORUS 3.2 mg/dL (2.5-4.9); POTASSIUM 3.5 mMol/L (3.7-5.1); SODIUM 136 mMol/L (135-145)
--- NOTE | 2017-05-17 04:00 | NUR ---
ADMIT FOR SUBMANDIBULAR ABSCESS. 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 MEDICAL HX INCLUDES: HX [place], R) FACIAL DROOP, ACOUSTIC TUMOR REMOVED & FACIAL RECONSTRUCTION, QUILEUTE, CABG, CAD, HYPERCHOLESTEROLEMIA, HTN, STENTS, SLEEP APNEA, ATHRITIS, GENERALIZED WEAKNESS, HEMORRHOIDS, CONSTIPATION, HEARTBURN, URINARY FREQUENCY, NOCTURIA, HX BASAL CELL CA.
--- NOTE | 2017-05-17 12:42 | NUR ---
Met with patient and at bedside today. Introduced myself and explained my role with the CM department. Patient and live in their own home. Patient likes to hang out in the basement as he has his own TV down their. He states the past week he became so weak that it was hard for him to get up the stairs once down there. Per and patient they would like him to have some therapy to get stronger. Patient and 's plan is to return to his own home once medically cleared for discharge. Will talk with his nurse about a referral for PT if PT is not already ordered for patient. No other needs at this time. CM will continue to follow.
--- NOTE | 2017-05-17 16:40 | NUR ---
Significant Event: Seen by Dr. Mccracken this am, aspirate of abcess to submandibular, speciman sent to lab. Seen by Speech therapy, had Modified Barium Swallow, order to remain NPO at this time. Potassium 3.5, 40meq of KCL IV stated at 1400. Up to chair and bathroom with 2 assist, use of walker/gait belt, gait unsteady. note anterior neck swollen/red, rates pain 2 on pain scale. Follow up:
--- NOTE | 2017-05-18 02:26 | NUR ---
Significant Event: PT AO. VSS ON RA, AFEBRILE. PRODUCTIVE COUGH. TELEMETRY ON WITH NO CALLS. IVF RUNNING TO L HAND, CONTINUES ON IV ABX. REMAINS NPO. FAILED MBS. UP WITH 2PA, GAITBELT AND WALKER. HAD A RECENT FALL AT HOME. PT/OT/ST TO SEE. ANTERIOR NECK IS SWOLLEN, SLIGHTLY RED. PT HAS RESTED WELL THIS SHIFT. Follow up: [facility] FOR SAFETY, MONITOR SWELLING, CHANGE PO MEDS TO IV
[2017-05-18 05:40] LABS: BASOPHIL % 0.1 %; EOSINOPHIL % 0.1 %; HEMATOCRIT 37.7 % (33.0-50.0); HEMOGLOBIN 12.7 g/dL (11.0-16.0); IMMATURE GRANULOCYTE # 0.1 K/uL (0.0-0.3); IMMATURE GRANULOCYTE % 0.6 %; LYMPHOCYTE # 0.8 K/uL (0.8-4.0); LYMPHOCYTE % 9.3 %; MCH 30.7 pg (27.0-34.0); MCHC 33.7 gm/dL (32.0-36.5); MCV 91.1 fl (83.0-98.0); MONOCYTE # 0.9 K/uL (0.0-1.0); MONOCYTE % 11.6 %; MPV 10.2 fl (9.4-12.4); NEUTROPHIL # (ANC) 6.3 K/uL (1.4-9.0); NEUTROPHIL % 78.3 %; NRBC % 0 /100WBC (0-0.00); PLATELET COUNT 207 K/uL (150-450); RBC 4.14 M/uL (3.50-5.50); RDW-CV 13.2 % (11.9-14.6); WBC 8.1 K/uL (4.0-11.0)
[2017-05-18 05:59] LABS: ANION GAP 15.8 (10.0-19.0); BLOOD UREA NITROGEN 19 mg/dL (6-24); CALCIUM 8.3 mg/dL (8.5-10.5); CHLORIDE 105 mMol/L (96-110); CO2 23 mMol/L (22-32); CPK 51 IU/L (35-332); CREATININE 0.8 mg/dL (0.6-1.3); ESTIMATED GFR (MDRD EQUATION) > 60; POTASSIUM 3.8 mMol/L (3.7-5.1); SODIUM 140 mMol/L (135-145)
--- NOTE | 2017-05-18 16:17 | NUR ---
Significant event: Patient is alert and oriented. VSS. on room air. IV to left hand with 50ml/hour. Tele on with no calls. Speech seen today and put on nectar thick liquids and puree foods.Needs to swallow 2-3 times with each bite/drink. Swelling to submandibular area is decreased. No complaints of pain. Up with 1-2 assist and walker/gait belt today. Ambulated in leon with PT. Productive cough. Cooperative with cares.
--- NOTE | 2017-05-19 03:51 | NUR ---
Significant Event: Alert/oriented x3. VSS on room air. IV left hand 50ml/hr. Tele, had 6 beats SVTs at 1930, notified Dr Hutchins - continue to monitor. Is on nectar-thick liquids and pureed foods due to failed barium swallow test yesterday. Advised to swallow 2-3 times with each drink/bite. Little swelling to submandibular area, improved overall. 1 assist ambulation. No complaints of pain. Follow up:
--- NOTE | 2017-05-19 11:01 | NUR ---
Social visit with while patient slept. She states that Cory with cardiology came in and saw gianat and ordered a echo to be done. Had CT scan of neck earlier this morning. Still on IV antibiotics at this time. Will wait for results of echo and CT scan before moving forward with discharge plan. still anticipates patient returning home once ready for discharge. Will continue to follow and assist with discharge planning.
--- NOTE | 2017-05-19 15:46 | NUR ---
Significant event: Pt is alert and oriented, though forgetful. VSS. on room air. Is to be on nectar thick liquids and puree foods. Did give meds whole this morning, one at a time. Pt dislikes the pureed food and thickened liquids. Wants ensure for every meal. Does like mckayla. Did have echo today and CT today. Will be going down for surgery tom- for I&D submental abscess with possible drain placement. Needs to be NPO after midnight today. Working with PT/OT. Walks with one assist, walker and gait belt. at bedside most of day. No complaints of pain or nausea. Cooperative with cares.
--- NOTE | 2017-05-20 05:02 | NUR ---
Significant Event: A/O X3, FORGETFUL. VSS AND AFEBRILE. SLIGHT SWELLING TO SUBMANDIBULAR AREA BUT IS IMPROVED FROM ADMIT DATE. WILL HAVE SURGERY THIS AM FOR I&D AND POSSIBLE DRAIN PLACEMENT. HAS BEEN NPO SINCE MIDNIGHT. PERMITS ON CHART, NOT SIGNED (NO R/B/A) AND CHECKLIST STARTED. NEW IV TO R) POSTERIOR FA WITH GOOD BLOOD RETURN, IV FLUIDS INFUSING WITHOUT DIFFICULTY. CONTINUES ON IV ATB. UP WITH 1A, GAIT BELT AND WALKER. TAKES MEDS WHOLE 1 AT A TIME. ON TELE AND NO CALLS. Follow up: SURGERY TODAY.
--- NOTE | 2017-05-20 14:40 | NUR ---
A - NUTRITION FOLLOW-UP SWELLING TO SUBMANDIBULAR AREA IMPROVED. NO NEW LABS NEW MEDS: CRESTOR DIET: PUREE/NECTAR THICK ON 05/18. PT DISLIKES PUREE/NECTAR THICK. REALLY WANTS SOME ENSURE ENLIVE. EXPLAINED THE SAFETY TO FOLLOW THIS. INTAKE 26-49% X1 MEAL NOTED. OFFERED OTHER ORAL SUPPLEMENT OPTIONS, AGREED TO TRY. ENCOURAGEMENT GIVEN. EST NEEDS: [id number] KCAL, 79-87 GRAMS PROTEIN, FLUID NEEDS: 1ML/KCAL D - INADEQUATE ORAL INTAKE RELATED TO DECREASED APPETITE SECONDARY TO DISLIKING MODIFIED DIET AND SWELLING TO MOUTH EVIDENCED BY PO 26-49% X1 MEAL AND PATIENT REPORT. I - PATIENT AGREED TO TRY NECTAR THICK CIB ONCE DAILY AND MAGIC CUP BID. M/E - GOAL: PT WILL BE ABLE TO TOLERATE >50% OF MEALS AND AT LEAST ONE ORAL SUPPLEMENT PER DAY IN 4-6 DAYS.
--- NOTE | 2017-05-20 16:46 | NUR ---
Significant Event:Returned from OR/PACU at 1130. VSS, continues on O2 at 2L since PACU, desats 86% with sleep, otherwise 94-97%. Deep breathing coughs with encouragement. Fluffs/Kerlex dsg on head/chin, changed in PACU for small amount of shadow bloody drainage. Chin area appears edematous. Remains CDI. May change prn. Pt has 1/2" mila drain underneath dressings. [place] x 3 last dose at 1545, rates pain 5-7/10. Swallows pureed nectar thickened liquids without choking. Pt is alert/orientated and forgetful. Follows commands. Voids per bedside commode, gait is slightly unsteady with 2 assist/GB/walker. IV per RFA, NS at 50ml. Follow up: Monitor
--- NOTE | 2017-05-21 05:57 | NUR ---
Significant Event: Follow up:PATIENT A/OX3, DRESSING CHANGED X2, GOOD OUTPUT, USING FLUTTER VALVE TO HELP WITH SECRATIONS, AMBULATES TO BATHRROM WITH WALKER
--- NOTE | 2017-05-21 16:34 | NUR ---
1045 In morning huddle it was mentioned that patient might be able to discharge over the weekend. I was concerned becasue he is still on IV antibiotics and I would need to set up home infusion if going home on those. I spoke to Crystal Acevedo APRN following patient and she was going to place a call to Dr. Hutchins and Dr. Mccracken to see if patient could change to oral antibiotics. Phone call from Crystal at approximately 1230 stating patient will be changed to oral antibiotics, but also that patient and were talking about a prison home before he comes home to work on strengthening. I called May Trevino with [facility] and Jasmin at [facility]. Both will have male beds available next week and asked me to fax his information to them. I met with patient and 1240 and they state they changed their minds and think that patient would do better at home. I let them know that they can discharge to home and if he struggles at home he could go to a SNF within 30 days of discharge and this hospital stay will count towards his qualifying stay for Medicare. I also talked to them about Home Health Care. I explained that if they have home health care patient needs to be homebound and can only leave the home for [facility]iscop[facility] and doctor appointments. Keshav thought this was a better option for him, but he wanted me to still send his information to the two skilled facilities listed above in case he struggles at home. They decided to go with [facility]. Referral made to Kendra at [facility] ([phone]). Kenrda came to the hospital and visited with patient. She picked up the needed paperwork and will plan on admitting him to their care once he is discharged. Fax cover sheet and face to face is in the chart ready to be faxed when discharged. Note left on chart asking nurses to fax the face to face and discharge orders to [facility] at [phone] when patient discharges. Notified May at [facility] and Jasmin at [facility] that patient is planning to discharge to home.
--- NOTE | 2017-05-21 19:00 | NUR ---
Significant Event:VSS, [place] 1 tab x 1 for submandibular and neck pain. Reports relief. Pt initially confused to time/date this a.m. more clear by noon, and back to baseline at 1400. Dsg changed to chin per Dr. Mccracken. Small amount of bloody drainage, mila drain appeared intact. Thick secretions and coughing this a.m. Pt uses chin/tuck dry swallow process to help with coughing and swallowing meds/food. Continues on nectar/pureed diet. Ambulates with contact assist of 1/GB/Walker. Follow up: Possible DC to home 05/22/17.
[2017-05-22 01:42] LABS: ANION GAP 10.9 (10.0-19.0); BLOOD UREA NITROGEN 17 mg/dL (6-24); CHLORIDE 102 mMol/L (96-110); CO2 29 mMol/L (22-32); CREATININE 0.7 mg/dL (0.6-1.3); ESTIMATED GFR (MDRD EQUATION) > 60; MAGNESIUM 1.9 mg/dL (1.8-2.6); SODIUM 139 mMol/L (135-145)
[2017-05-22 01:43] LABS: POTASSIUM 2.9 mMol/L (3.7-5.1)
--- NOTE | 2017-05-22 05:14 | NUR ---
Significant Event: ALERT AND ORIENTED X3 FORGETFULK AT TIMES. POTASSIUM AND MAG LOW IVS AND ORAL MEDS GIVEN. HAD 4 BEATS OF VTACH AT 0025, PHYSICIAN NOTIFIED. ON TELE. VS WNL TELE PATIENT IS TO POSSIBLY DISMISS IN AM Follow up:
[2017-05-22 08:55] LABS: ANION GAP 11.6 (10.0-19.0); BLOOD UREA NITROGEN 14 mg/dL (6-24); CALCIUM 8.2 mg/dL (8.5-10.5); CHLORIDE 103 mMol/L (96-110); CO2 27 mMol/L (22-32); CREATININE 0.7 mg/dL (0.6-1.3); ESTIMATED GFR (MDRD EQUATION) > 60; MAGNESIUM 2.1 mg/dL (1.8-2.6); POTASSIUM 3.6 mMol/L (3.7-5.1); SODIUM 138 mMol/L (135-145)
[2017-05-22] MEDS ORDERED: AMOXICILLIN250 MG PO (16:07)
[2017-05-22] MEDS ORDERED: ARTIFICIAL TEAR15 ML OPHTH (16:09)
[2017-05-22] MEDS ORDERED: CITRACAL+D(315M1 TAB PO (16:10)
[2017-05-22] MEDS ORDERED: CRESTOR10 MG PO (16:14)
[2017-05-22] MEDS ORDERED: FLORASTOR250 MG PO (16:15)
[2017-05-22] MEDS ORDERED: K-TAB ER20 MEQ PO (16:18)
== END 2017-05-22 17:00 | disposition disaster alternative care site (69) | DRG 138 ==
LOC: GMED 18:13 → GMSU 20:58
PROVIDERS: Family Medicine; Internal Medicine; Nurse Practitioner Family; ADMIT Family Medicine
PROC: 0W9200Z Drainage of Face with Drainage Device, Open Approach (ICD-10-PCS; principal; 2017-05-20)
PROC: 0W923ZZ Drainage of Face, Percutaneous Approach (ICD-10-PCS; 2017-05-20)
PROC: 3E10X8Z Irrigation of Skin and Mucous Membranes using Irrigating Substance (ICD-10-PCS; 2017-05-20)
DX: K12.2 Cellulitis and abscess of mouth (principal); Z95.1 Presence of aortocoronary bypass graft; R13.11 Dysphagia, oral phase; T17.920A Food in respiratory tract, part unspecified causing asphyxiation, initial encounter; Z86.73 Personal history of transient ischemic attack (TIA), and cerebral infarction without residual deficits; I25.10 Atherosclerotic heart disease of native coronary artery without angina pectoris; I10 Essential (primary) hypertension; E78.5 Hyperlipidemia, unspecified; F41.9 Anxiety disorder, unspecified; E87.6 Hypokalemia; Z95.5 Presence of coronary angioplasty implant and graft; Z96.652 Presence of left artificial knee joint; R53.1 Weakness; M19.90 Unspecified osteoarthritis, unspecified site
CPT/HCPCS: A9270; J0295; J2001; J3010; J3475; J3480; J7030; J7040; J7050; Q9967